=== PATIENT | female | born 1995 | race Caucasian/White ===

== ENCOUNTER 2025-08-02 11:56 | Emergency (ER) | payer MEDICAID ==
[~2025-08-02] VITALS: Ht 160 cm; Wt 59.0 kg
[2025-08-02 12:15] VITALS: O2SAT 98
[2025-08-02 15:00] VITALS: BP 112/76; PULSE 85; RESP 14; TEMP 36.8; O2SAT 99
== END 2025-08-02 15:03 | disposition home or self-care (01) ==
LOC: ER 11:56
DX: T59 Toxic effect of other gases, fumes and vapors (principal); Y92.89 Other specified places as the place of occurrence of the external cause
CPT/HCPCS: 99282